=== PATIENT | female | born 1955 | race Caucasian/White ===

== ENCOUNTER 2021-04-17 09:58 | Inpatient (IN) | payer MEDICARE, OTHER ==
[~2021-04-17] VITALS: Ht 167.6 cm; Wt 108.1 kg
[2021-04-17 11:19] LABS: BASOPHIL 0.4 % (0-2); HCT 32.5 % (37.0-47.0); HGB 9.4 g/dl (12.5-16.0); LYMPHOCYTE 12.9 % (15-48); MCH 23.6 pg (25.0-31.0); MCHC 28.9 g/dL (32.0-36.0); MCV 81.7 fL (78.0-100.0); MONOCYTE 5.7 % (0-12); MPV 9.7 fL (6.0-9.5); NEUTROPHIL 78.6 % (41-80); NRBC 0.3; PLT 248 K/uL (150-400); RBC 3.98 M/uL (4.20-5.40); RDW 19.3 % (11.5-14.0); WBC 7.1 K/uL (4.0-10.5)
[2021-04-17 11:51] LABS: BILIRUBIN - TOTAL 0.3 mg/dL (0.2-1.0); CREATININE 2.7 mg/dL (0.51-0.95); GLOBULIN (CALCULATION) 4.9 g/dL; POTASSIUM 5.2 mmol/L (3.5-5.1); TOTAL PROTEIN 7.9 g/dL (6.4-8.2)
[2021-04-17 15:28] LABS: BILIRUBIN NEGATIVE (NEGATIVE); BLOOD TRACE-INTACT Ery/uL (NEGATIVE); CLARITY CLEAR (CLEAR); COLOR YELLOW (YELLOW); GLUCOSE (U) NORMAL (NORMAL); LEUKOCYTES NEGATIVE Leu/uL (NEGATIVE); NITRITE NEGATIVE (NEGATIVE); PROTEIN NEGATIVE (NEGATIVE); SPECIFIC GRAVITY 1.025 (1.001-1.030); UROBILINOGEN 0.2 mg/dL (0.2-1.0); pH 5.5 (5.0-9.0)
[2021-04-17 15:35] LABS: BACTERIA 1+
[2021-04-17] MEDS ORDERED: VENTOLIN HFA IN18 GM INH (17:55)
[2021-04-17] MEDS ORDERED: LEXAPRO20 MG PO (17:56)
[2021-04-17] MEDS ORDERED: DOXYCYCLINE HY100 MG PO (17:56)
[2021-04-17] MEDS ORDERED: REQUIP1 MG PO (17:57)
[2021-04-17] MEDS ORDERED: XANAX0.5 MG PO (17:57)
[2021-04-17] MEDS ORDERED: PRILOSEC20 MG PO (17:58)
[2021-04-17] MEDS ORDERED: PRAVACHOL20 MG PO (17:58)
[2021-04-17] MEDS ORDERED: LOPRESSOR25 MG PO (17:59)
[2021-04-17] MEDS ORDERED: COZAAR50 MG PO (17:59)
[2021-04-17] MEDS ORDERED: LASIX20 MG PO (18:00)
[2021-04-17] MEDS ORDERED: SYNTHROID25 MCG PO (18:00)
[2021-04-17] MEDS ORDERED: BENTYL10 MG PO (18:01)
[2021-04-17] MEDS ORDERED: ELIQUIS5 MG PO (18:01)
[2021-04-18 06:29] LABS: BASOPHIL 0.5 % (0-2); EOSINOPHIL 0.8 % (0-7); HCT 30.5 % (37.0-47.0); HGB 8.4 g/dl (12.5-16.0); MCH 23.8 pg (25.0-31.0); MCHC 27.5 g/dL (32.0-36.0); MONOCYTE 5.1 % (0-12); MPV 9.6 fL (6.0-9.5); NEUTROPHIL 86.1 % (41-80); NRBC 0.2; PLT 182 K/uL (150-400); RBC 3.53 M/uL (4.20-5.40); RDW 19.5 % (11.5-14.0); WBC 8.7 K/uL (4.0-10.5)
[2021-04-18 07:02] LABS: ALBUMIN 2.5 g/dL (3.4-5.0); BILIRUBIN - TOTAL 0.3 mg/dL (0.2-1.0); BUN/CREAT RATIO (CALC) 18.3 RATIO; CREATININE 2.08 mg/dL (0.51-0.95); GLOBULIN (CALCULATION) 4.3 g/dL; POTASSIUM 5.2 mmol/L (3.5-5.1); TOTAL PROTEIN 6.8 g/dL (6.4-8.2)
[2021-04-18 07:06] LABS: MCV 86.4 fL (78.0-100.0)
[2021-04-19 06:25] LABS: BASOPHIL 0.2 % (0-2); EOSINOPHIL 0.4 % (0-7); HCT 26.7 % (37.0-47.0); HGB 7.7 g/dl (12.5-16.0); LYMPHOCYTE 6.1 % (15-48); MCHC 28.8 g/dL (32.0-36.0); MCV 83.2 fL (78.0-100.0); MONOCYTE 4.4 % (0-12); NEUTROPHIL 88.2 % (41-80); NRBC 0.3; PLT 151 K/uL (150-400); RBC 3.21 M/uL (4.20-5.40); WBC 11.9 K/uL (4.0-10.5)
[2021-04-19 06:59] LABS: BUN/CREAT RATIO (CALC) 16.3 RATIO; CREATININE 1.66 mg/dL (0.51-0.95); POTASSIUM 4.9 mmol/L (3.5-5.1)
[2021-04-19 11:10] LABS: IRON % SATURATION 3.7 %SAT (20-50)
[2021-04-21 07:11] LABS: BASOPHIL 0.3 % (0-2); EOSINOPHIL 2.6 % (0-7); HCT 28.7 % (37.0-47.0); HGB 7.7 g/dl (12.5-16.0); LYMPHOCYTE 12.8 % (15-48); MCHC 26.8 g/dL (32.0-36.0); MCV 85.7 fL (78.0-100.0); MONOCYTE 5.1 % (0-12); MPV 9.8 fL (6.0-9.5); NEUTROPHIL 78.7 % (41-80); NRBC 0.8; PLT 171 K/uL (150-400); RBC 3.35 M/uL (4.20-5.40); RDW 19.3 % (11.5-14.0); WBC 6.2 K/uL (4.0-10.5)
[2021-04-21 07:35] LABS: BUN/CREAT RATIO (CALC) 14.6 RATIO; CREATININE 1.57 mg/dL (0.51-0.95); MAGNESIUM 2.5 mg/dL (1.8-2.4); POTASSIUM 5.3 mmol/L (3.5-5.1)
[2021-04-21] MEDS ORDERED: TOPROL XL 25MG25 MG PO (08:06)
[2021-04-21] MEDS ORDERED: MIRALAX17 GM PO (08:06)
[2021-04-21] MEDS ORDERED: FOLIC ACID1 MG PO (08:06)
== END 2021-04-21 11:33 | disposition home health service (06) | DRG 682 ==
LOC: FER 09:58 → FMS 13:28 → FER 16:44 → FMS 04-19 12:45
PROVIDERS: Emergency Medicine; ADMIT Internal Medicine
DX: N17.9 Acute kidney failure, unspecified (principal); I21.A1 Myocardial infarction type 2; I45.2 Bifascicular block; Z20.822 Contact with and (suspected) exposure to COVID-19; I12.9 Hypertensive chronic kidney disease with stage 1 through stage 4 chronic kidney disease, or unspecified chronic kidney disease; N18.30 Chronic kidney disease, stage 3 unspecified; E86.0 Dehydration; D63.1 Anemia in chronic kidney disease; E11.22 Type 2 diabetes mellitus with diabetic chronic kidney disease; E66.01 Morbid (severe) obesity due to excess calories; I48.0 Paroxysmal atrial fibrillation; J44.9 Chronic obstructive pulmonary disease, unspecified; K58.9 Irritable bowel syndrome, unspecified; E03.9 Hypothyroidism, unspecified; Z88.5 Allergy status to narcotic agent; Z88.1 Allergy status to other antibiotic agents; Z90.49 Acquired absence of other specified parts of digestive tract; Z90.89 Acquired absence of other organs; Z98.890 Other specified postprocedural states; Z79.01 Long term (current) use of anticoagulants; Z79.899 Other long term (current) drug therapy; Z68.38 Body mass index [BMI] 38.0-38.9, adult
CPT/HCPCS: 36415; 36600; 71045; 71250; 80048; 80053; 80162; 81001; 82607; 82728; 82746; 82803; 82962; 83540; 83550; 83605; 83735; 84443; 84484; 85025; 93005; 94640; 94667; 94668; 97162; 97166; 97530-GP; 97535; G0008; G0378; J1160; J2916; J7030; U0002

== ENCOUNTER 2021-11-24 11:07 | Emergency (ER) | payer OTHER ==
[~2021-11-24 11:07] MED LIST: BENTYL10 MG PO; COZAAR50 MG PO; DOXYCYCLINE HY100 MG PO; ELIQUIS5 MG PO; FOLIC ACID1 MG PO; LASIX20 MG PO; LEXAPRO20 MG PO; LOPRESSOR25 MG PO; MIRALAX17 GM PO; PRAVACHOL20 MG PO; PRILOSEC20 MG PO; REQUIP1 MG PO; SYNTHROID25 MCG PO; TOPROL XL 25MG25 MG PO; VENTOLIN HFA IN18 GM INH; XANAX0.5 MG PO
[2021-11-24 11:52] LABS: BASOPHIL 0.6 % (0-2); EOSINOPHIL 3.9 % (0-7); HCT 27.6 % (37.0-47.0); HGB 7.5 g/dl (12.5-16.0); LYMPHOCYTE 18.7 % (15-48); MCH 21.2 pg (25.0-31.0); MCHC 27.2 g/dL (32.0-36.0); MONOCYTE 6.7 % (0-12); MPV 9.8 fL (6.0-9.5); NEUTROPHIL 69.5 % (41-80); NRBC 0; PLT 196 K/uL (150-400); RBC 3.54 M/uL (4.20-5.40); RDW 22.4 % (11.5-14.0); WBC 5.1 K/uL (4.0-10.5)
[2021-11-24 12:19] LABS: ALBUMIN 2.8 g/dL (3.4-5.0); BILIRUBIN - TOTAL 0.2 mg/dL (0.2-1.0); BUN/CREAT RATIO (CALC) 16.2 RATIO; CREATININE 1.54 mg/dL (0.51-0.95); GLOBULIN (CALCULATION) 4.1 g/dL; POTASSIUM 4.9 mmol/L (3.5-5.1); TOTAL PROTEIN 6.9 g/dL (6.4-8.2)
[2021-11-24 12:33] LABS: CORONAVIRUS 2019 SARS-COV-2 NEGATIVE (NEGATIVE); INFLUENZA A NAA NEGATIVE (NEGATIVE)
[2021-11-24 13:20] LABS: INR 1.23 (0.9-1.2); PROTHROMBIN TIME 15.1 SECONDS (11.9-13.9); PTT 31.4 SECONDS (24.9-34.6)
[2021-11-24 13:51] LABS: LACTIC ACID 2.1 mmol/L (0.4-1.9)
[2021-11-24 14:10] LABS: BILIRUBIN NEGATIVE (NEGATIVE); BLOOD TRACE-INTACT Ery/uL (NEGATIVE); CLARITY CLEAR (CLEAR); COLOR YELLOW (YELLOW); GLUCOSE (U) TRACE mg/dL (NORMAL); LEUKOCYTES NEGATIVE Leu/uL (NEGATIVE); NITRITE NEGATIVE (NEGATIVE); PROTEIN NEGATIVE (NEGATIVE); UROBILINOGEN 0.2 mg/dL (0.2-1.0)
[2021-11-24 14:18] LABS: BACTERIA TRACE
[2021-11-24 14:22] LABS: IRON % SATURATION 5.2 %SAT (20-50)
[2021-11-24 15:01] LABS: FOLIC ACID (SERUM) 79.3 ng/mL (8.6-58.9)
== END 2021-11-24 16:42 | disposition other institution (70) ==
LOC: FER 11:07
PROVIDERS: Emergency Medicine
DX: R00.0 Tachycardia, unspecified (principal); I95.9 Hypotension, unspecified; N18.9 Chronic kidney disease, unspecified; R91.8 Other nonspecific abnormal finding of lung field; I48.91 Unspecified atrial fibrillation; J44.9 Chronic obstructive pulmonary disease, unspecified; F17.200 Nicotine dependence, unspecified, uncomplicated; Z88.1 Allergy status to other antibiotic agents; Z88.6 Allergy status to analgesic agent; Z79.890 Hormone replacement therapy; Z79.01 Long term (current) use of anticoagulants; Z79.899 Other long term (current) drug therapy; Z20.822 Contact with and (suspected) exposure to COVID-19
CPT/HCPCS: 36415; 71045; 80053; 81001; 82553; 82607; 82728; 82746; 83540; 83550; 83605; 84443; 84484; 85025; 85379; 85610; 85730; 93005; J7030; U0002